=== PATIENT | male | born 1985 | race Caucasian/White ===

== ENCOUNTER 2018-07-12 04:40 | Emergency (ER) | payer MEDICAID ==
[~2018-07-12] VITALS: Ht 160 cm; Wt 56.7 kg
--- NOTE | 2018-07-12 04:40 | NUR ---
PT LUIZA, PREBOOK. TAKEN TO ER BED 11 WITH [place] [employer] AT BEDSIDE
[2018-07-12 04:54] VITALS: BP 148/94
--- NOTE | 2018-07-12 04:57 | NUR ---
PT BIBA FOR R WRIST PAIN. PT WAS BREAKING INTO PROPERTY AND FELL AND HURT WRIST ACCORDING TO [place] [employer], PT IS BEING PREBOOKED. PT IS ONLY STATING THAT WRIST HURTS AND IS NOT SAYING ANYTHING ELSE. WRIST IS VISIBLY DEFORMED, PATIENT CAN MOVE FINGERS. VSS. ER MD NOTIFIED OF PT CONDITION. WILL CONTINUE TO MONITOR
--- NOTE | 2018-07-12 05:02 | NUR ---
Dr. Vitale evaluating patient at bedside.
--- NOTE | 2018-07-12 05:11 | NUR ---
X-Ray at bedside.
[2018-07-12 06:00] VITALS: BP 148/94
--- NOTE | 2018-07-12 06:00 | NUR ---
PATIENT BIB [employer]. PATIENT EXAMINED BY DR. MO. PATIENT MEDICALLY CLEARED AND RELEASED IN CUSTODY IN STABLE CONDITION. ORIGINAL PRE-BOOK FORM GIVEN [facility]. Addendum: 07/12/18 at 0654 by YURI Gee [facility] OFF[facility] AT [facility]
== END 2018-07-12 06:00 ==
LOC: MED 04:40
DX: S52.571A Other intraarticular fracture of lower end of right radius, initial encounter for closed fracture (principal); S00.81XA Abrasion of other part of head, initial encounter; S00.83XA Contusion of other part of head, initial encounter; R03.0 Elevated blood-pressure reading, without diagnosis of hypertension; W01.0XXA Fall on same level from slipping, tripping and stumbling without subsequent striking against object, initial encounter; Y93.89 Activity, other specified; Y92.89 Other specified places as the place of occurrence of the external cause; Y99.8 Other external cause status
CPT/HCPCS: 29125; 73110; 99283; Q0092